=== PATIENT | male | born 1945 | race Caucasian/White ===

== ENCOUNTER 2023-08-14 19:11 | Emergency (ER) | payer OTHER, BC ==
[2023-08-14 19:21] VITALS: BP 138/61; PULSE 60; RESP 16; TEMP 97.6; BMI 21.4
[2023-08-14 20:09] LABS: HEMOGLOBIN 11.9 G/dL (11.7-16.9); MCHC 31.4 g/dl (32.0-35.9); MEAN CELL VOLUME 89.1 fl (80-96); PLATELET COUNT 169.5 10^3/uL (134-434); RBC 4.26 10^6/uL (4.00-5.60); RDW 15.9 % (11.9-15.9)
[2023-08-14] MEDS: SODIUM CHLORIDE 1,000 ML IV ONE (20:11)
[2023-08-14 20:23] LABS: ALBUMIN 4.3 g/dl (3.4-5.0); BILIRUBIN,TOTAL 0.4 mg/dl (0.2-1); CALCIUM 9.4 mg/dl (8.5-10.1); CREATININE 1.1 mg/dl (0.6-1.3); MAGNESIUM 1.7 mg/dL (1.8-2.4); PHOSPHOROUS 3.7 (2.5-4.9); POTASSIUM 3.9 mmol/L (3.5-5.1); TOT PROT 6.3 g/dl (6.4-8.2)
== END 2023-08-14 21:11 | disposition home or self-care (01) ==
LOC: FER 19:11
PROC: 3E0337Z Introduction of Electrolytic and Water Balance Substance into Peripheral Vein, Percutaneous Approach (ICD-10-PCS; principal; 2023-08-14)
DX: E86.0 Dehydration (principal); R19.7 Diarrhea, unspecified; R10.30 Lower abdominal pain, unspecified
CPT/HCPCS: 36415; 80053; 82550; 82553; 83735; 84100; 84484; 85027; 93005; 99284-25